=== PATIENT | female | born 1980 | race Caucasian/White ===

== ENCOUNTER 2018-03-21 07:41 | Day surgery (SDC) | payer BC ==
[~2018-03-21] VITALS: Ht 157.5 cm; Wt 60.3 kg
[~2018-03-21 07:41] MED LIST: ASACOL400 MG PO; IBUPROFEN800 MG PO; MERCAPTOPURINE50 MG PO; NORCO 5/3251 TABLET PO; ONE DAILY MUL400 MCG PO; PRENATAL1 EACH PO
[2018-03-21 08:10] VITALS: BP 111/65
[2018-03-21] MEDS ORDERED: NORCO 5/3251 TABLET PO (10:43)
[2018-03-21 12:06] VITALS: BP 103/70
[2018-03-21 12:21] VITALS: BP 109/62
[2018-03-21 13:18] VITALS: BP 95/52
[2018-03-21 15:13] VITALS: BP 105/55
[2018-03-21 16:10] VITALS: BP 102/62
== END 2018-03-21 16:45 | disposition home or self-care (01) ==
LOC: SDC 07:41
PROC: 0WUF4JZ Supplement Abdominal Wall with Synthetic Substitute, Percutaneous Endoscopic Approach (ICD-10-PCS; principal; 2018-03-21)
DX: K43.6 Other and unspecified ventral hernia with obstruction, without gangrene (principal); K50.90 Crohn's disease, unspecified, without complications; Z88.0 Allergy status to penicillin; Z88.1 Allergy status to other antibiotic agents
CPT/HCPCS: C1781; J0131; J0690; J1100; J1170; J1885; J2250; J2405; J2710; J2765; J3010; J3475; J7643